=== PATIENT | male | born 2000 | race Caucasian/White ===

== ENCOUNTER 2024-05-10 09:41 | Emergency (ER) | payer OTHER ==
[~2024-05-10] VITALS: Ht 177.8 cm; Wt 64.9 kg
[2024-05-10 10:24] VITALS: BP 101/62; PULSE 68; RESP 18; TEMP 98.2; O2SAT 98
[2024-05-10 13:36] VITALS: BP 101/62; PULSE 68; RESP 18; TEMP 98.2; O2SAT 98
== END 2024-05-10 13:36 | disposition home or self-care (01) ==
LOC: MED 09:41
DX: S92.354A Nondisplaced fracture of fifth metatarsal bone, right foot, initial encounter for closed fracture (principal); X58.XXXA Exposure to other specified factors, initial encounter; Y93.67 Activity, basketball; Y92.310 Basketball court as the place of occurrence of the external cause; Y99.8 Other external cause status
CPT/HCPCS: 29515; 73610; 73630; 99284